=== PATIENT | male | born 1950 | race Caucasian/White ===

== ENCOUNTER 2017-05-14 18:15 | Inpatient (IN) | payer OTHER ==
[~2017-05-14] VITALS: Ht 182.9 cm; Wt 145.3 kg
[~2017-05-14 18:15] MED LIST: ADULT LOW DOSE81 M1 PO; AMLODIPINE BESYL5 MG PO; Aspirin E.C. PO; CELEBREX200 MG PO; CYANOCOBALAM1000 MCG PO; FLOMAX0.4 MG PO; FLORASTOR250 MG PO; GLUCOPHAGE1000 MG PO; GLUCOTROL XL10 MG PO; GLUCOTROL10 MG PO; GRALISE600 MG PO; Glucophage PO; Glucotrol PO; HYDROCODON-ACE1 EAC7 PO; K-DUR10 MEQ PO; KETOCONAZOLE60 GM TP; LASIX20 MG PO; LEVEMIR FL100 UNIT/1 SC; LEVEMIR FL100 UNITS/ SC; LIPITOR20 MG PO; METANX CAPSULE1 EACH PO; METANX1 TABLET PO; METRONIDAZOLE500 MG PO; MULTIVITAMIN1 EAC2 PO; Mavik PO; NEURONTIN300 MG PO; PERCOCET 5/31 TABLET PO; Percocet 5/325,Endoc PO; ROCEPHIN 2 GM VI2 GM IM; TRAMADOL HCL50 MG PO; TYLENOL EXTRA500 MG PO; Tylenol Regular Stre PO; VANCOMYCIN100 MG/M2 IV; VITAMIN B12-FO1 EACH PO; Vitamin B-12 PO; ZESTRIL10 MG PO; ZYVOX600 MG PO; [UNRECOGNIZED DRUG - OTHER] PO
[2017-05-14 19:34] LABS: HEMATOCRIT 42.4 % (38.0-50.0); MCHC 34.2 G/DL (30.0-36.0); MCV 87.8 FL (86-99); MEAN PLAT.VOLUME 10.1 uM^3 (9.0-12.4); PLATELET COUNT 218 K/uL (156-360); RBC DIS.WIDTH-CV 13.3 % (11.8-14.6); RED BLOOD COUNT 4.83 M/uL (4.00-5.50); WHITE BLOOD COUNT 10.7 K/uL (4.1-10.2)
[2017-05-14 19:47] LABS: CHLORIDE 106 mEq/L (99-109); POTASSIUM 4.1 mEq/L (3.7-5.4)
[2017-05-14 19:48] LABS: SODIUM 140 mEq/L (136-147)
[2017-05-14 19:49] LABS: GLUCOSE 214 mg/dL (70-99)
[2017-05-14 19:51] LABS: ANION GAP 12 MEQ/L (2-14)
[2017-05-14 19:53] LABS: GFR ESTIMATE (CALCULATED) > 59 mL/min/
[2017-05-14 19:54] LABS: UREA NITROGEN (BUN) 15 mg/dL (9-23)
[2017-05-14] MEDS ORDERED: ANODYNE LPT 2.1 EACH TP (21:36)
[2017-05-14] MEDS ORDERED: METFORMIN HCL1000 MG PO (21:37)
[2017-05-14] MEDS ORDERED: DICLOFENAC SOD100 GM TP (21:37)
[2017-05-15 04:49] VITALS: BP 131/63
[2017-05-15 06:08] LABS: HEMATOCRIT 39.4 % (38.0-50.0); MCH 29.5 PG (29.0-34.0); MCHC 33.5 G/DL (30.0-36.0); MCV 87.9 FL (86-99); MEAN PLAT.VOLUME 10.1 uM^3 (9.0-12.4); PLATELET COUNT 192 K/uL (156-360); RBC DIS.WIDTH-CV 13.2 % (11.8-14.6); RBC DIS.WIDTH-SD 43.2 % (39-53); RED BLOOD COUNT 4.48 M/uL (4.00-5.50)
[2017-05-15 06:36] LABS: ANION GAP 7 MEQ/L (2-14); CHLORIDE 109 MEQ/L (99-109); GFR ESTIMATE (CALCULATED) > 59 mL/min/; GLUCOSE 233 mg/dL (70-99); POTASSIUM 4.5 MEQ/L (3.7-5.4); SAMPLE HEMOLYSIS CHECK 0; SAMPLE ICTERIC CHECK 0; SAMPLE LIPEMIA CHECK 0; SODIUM 141 MEQ/L (136-147); UREA NITROGEN (BUN) 14 mg/dL (9-23)
[2017-05-15 06:44] LABS: POINT-OF-CARE METER ID UU13113774
[2017-05-15 06:52] LABS: Estimated Average Glucose 203 mg/dL (70-123); HEMOGLOBIN A1c (GLYCOHEMOGLOB) 8.7 % HGB (Below 5.7)
[2017-05-15 07:20] VITALS: BP 122/71
[2017-05-15 11:26] LABS: POINT-OF-CARE METER ID UU13113774
[2017-05-15 16:32] LABS: POINT-OF-CARE METER ID UU13113725
[2017-05-15 16:53] VITALS: BP 130/63
[2017-05-15 21:22] LABS: POINT-OF-CARE METER ID UU13113725
[2017-05-15 23:40] VITALS: BP 116/56
[2017-05-16 07:26] LABS: POINT-OF-CARE METER ID UU13113774
[2017-05-16 07:27] VITALS: BP 123/58
[2017-05-16 10:37] LABS: POINT-OF-CARE METER ID UU13113725
[2017-05-16 15:50] LABS: POINT-OF-CARE METER ID UU13113774
[2017-05-16 16:33] VITALS: BP 128/63
[2017-05-16 18:34] LABS: ADD MIUA? YES; BILIRUBIN NEGATIVE; BLOOD LARGE; COLOR YELLOW ((YELLOW)); GLUCOSE (STRIP) >=500; KETONES NEGATIVE; LEUKOCYTES MODERATE; NITRITE NEGATIVE; PROTEIN (STRIP) 100; SPECIFIC GRAVITY 1.026 (1.000-1.030)
[2017-05-16 19:14] LABS: BACTERIA 2+ /HPF; EPITHELIAL CELLS NONE SEEN /HPF; MUCUS TRACE /LPF; RED BLOOD CELLS TNTC /HPF (0-5)
[2017-05-16 19:56] LABS: POINT-OF-CARE METER ID UU13113774
[2017-05-16 22:07] LABS: CASTS NONE SEEN /LPF; CRYSTALS NONE SEEN
[2017-05-17 06:42] LABS: POINT-OF-CARE METER ID UU13113725
[2017-05-17 07:11] LABS: EOSINOPHIL (%) 1.7 % (0-5); EOSINOPHIL COUNT 0.1 K/uL (0-0.3); HEMATOCRIT 37.7 % (38.0-50.0); IMMATURE GRANULOCYTE (%) 0.7 % (0.0-0.7); LYMPHOCYTE COUNT 1.2 K/uL (1.0-2.8); MCH 29.7 PG (29.0-34.0); MCHC 33.7 G/DL (30.0-36.0); MCV 88.3 FL (86-99); MEAN PLAT.VOLUME 10.3 uM^3 (9.0-12.4); MONOCYTE (%) 7.3 % (3-12); MONOCYTE COUNT 0.4 K/uL (0-0.8); NEUTROPHIL (%) 69.4 % (45-76); PLATELET COUNT 176 K/uL (156-360); RBC DIS.WIDTH-CV 13.2 % (11.8-14.6); RBC DIS.WIDTH-SD 42.9 % (39-53); RED BLOOD COUNT 4.27 M/uL (4.00-5.50); WHITE BLOOD COUNT 5.8 K/uL (4.1-10.2)
[2017-05-17 07:34] LABS: ANION GAP 8 MEQ/L (2-14); CHLORIDE 105 MEQ/L (99-109); GFR ESTIMATE (CALCULATED) > 59 mL/min/; GLUCOSE 234 mg/dL (70-99); POTASSIUM 4.5 MEQ/L (3.7-5.4); SAMPLE HEMOLYSIS CHECK 0; SAMPLE ICTERIC CHECK 0; SAMPLE LIPEMIA CHECK 0; SODIUM 138 MEQ/L (136-147); UREA NITROGEN (BUN) 12 mg/dL (9-23)
[2017-05-17 08:00] VITALS: BP 123/61
[2017-05-17 08:46] VITALS: BP 123/61
[2017-05-17 11:27] LABS: POINT-OF-CARE METER ID UU13113774
[2017-05-17 15:22] VITALS: BP 126/64
[2017-05-17 16:19] LABS: POINT-OF-CARE METER ID UU13113725
[2017-05-17 21:04] LABS: POINT-OF-CARE METER ID UU13113725
[2017-05-18 00:16] VITALS: BP 130/62
[2017-05-18 05:56] LABS: POINT-OF-CARE METER ID UU13113725
[2017-05-18 07:19] VITALS: BP 133/63
[2017-05-18 11:42] LABS: POINT-OF-CARE METER ID UU13113725
[2017-05-18 15:58] VITALS: BP 123/65
[2017-05-18 16:21] LABS: POINT-OF-CARE METER ID UU13113725
[2017-05-18 20:53] LABS: POINT-OF-CARE METER ID UU13113725
[2017-05-19 00:24] VITALS: BP 134/64
[2017-05-19 06:07] LABS: POINT-OF-CARE METER ID UU13113725
[2017-05-19 07:46] VITALS: BP 138/62
[2017-05-19] MEDS ORDERED: LEVOFLOXACIN250 MG PO (09:41)
[2017-05-19 11:49] LABS: POINT-OF-CARE METER ID UU13113725
== END 2017-05-19 12:24 | DRG 74 ==
LOC: EME 18:15 → EDOF 22:07 → 5EAST 22:07 → ENRESERV 22:07 → EDOF 05-15 00:23 → 5EAST 05-15 00:23
PROVIDERS: Emergency Medicine; Hospitalist; Internal Medicine
DX: E11.42 Type 2 diabetes mellitus with diabetic polyneuropathy (principal); R27.0 Ataxia, unspecified; E11.65 Type 2 diabetes mellitus with hyperglycemia; N39.0 Urinary tract infection, site not specified; R53.1 Weakness; E66.9 Obesity, unspecified; Z68.41 Body mass index [BMI] 40.0-44.9, adult; I10 Essential (primary) hypertension; I89.0 Lymphedema, not elsewhere classified; K76.89 Other specified diseases of liver; M79.7 Fibromyalgia; R60.0 Localized edema; R31.9 Hematuria, unspecified; Z79.4 Long term (current) use of insulin; E78.5 Hyperlipidemia, unspecified; Z80.0 Family history of malignant neoplasm of digestive organs; Z82.49 Family history of ischemic heart disease and other diseases of the circulatory system
CPT/HCPCS: 71020; 73610; 73630; 76770; 80048; 81003; 82306; 82607; 82746; 82948; 83036; 84443; 85025; 85027; 87086; 90686; 93005; 97530 GO; 97530 GP; 99281; 99285; J1644; J1815; J1956; J7030

== ENCOUNTER 2017-09-06 10:05 | Observation (INO) | payer OTHER ==
[~2017-09-06] VITALS: Ht 185.4 cm; Wt 150.2 kg
[~2017-09-06 10:05] MED LIST changes: +ANODYNE LPT 2.1 EACH TP; +DICLOFENAC SOD100 GM TP; +LEVOFLOXACIN250 MG PO; +METFORMIN HCL1000 MG PO
[2017-09-06 10:51] LABS: HEMATOCRIT 42.8 % (38.0-50.0); MCH 30.7 PG (29.0-34.0); MCV 87.7 FL (86-99); PLATELET COUNT 175 K/uL (156-360); RBC DIS.WIDTH-CV 13.2 % (11.8-14.6); RBC DIS.WIDTH-SD 42.4 % (39-53); RED BLOOD COUNT 4.88 M/uL (4.00-5.50)
[2017-09-06 10:59] LABS: ALBUMIN 3.8 g/dL (3.2-4.8)
[2017-09-06 11:00] LABS: CHLORIDE 104 mEq/L (99-109); POTASSIUM 4.3 mEq/L (3.7-5.4); SODIUM 138 mEq/L (136-147)
[2017-09-06 11:02] LABS: GLUCOSE 243 mg/dL (70-99); TOTAL PROTEIN 6.7 g/dL (6.4-8.3)
[2017-09-06 11:04] LABS: TOTAL BILIRUBIN 0.8 mg/dL (0.0-1.0)
[2017-09-06 11:05] LABS: ALKALINE PHOSPHATASE 113 IU/L (3-129)
[2017-09-06 11:06] LABS: CREATININE 0.9 mg/dL (0.6-1.3); GFR ESTIMATE (CALCULATED) > 59 mL/min/ (58.99-99999)
[2017-09-06 11:07] LABS: AST (GOT) 16 IU/L (2-34); UREA NITROGEN (BUN) 13 mg/dL (9-23)
[2017-09-06 11:09] LABS: ALT (GPT) 19 IU/L (3-49); CREATINE KINASE 26 IU/L (1-294)
[2017-09-06 17:55] LABS: APPEARANCE SL.HAZY ((CLEAR)); BILIRUBIN NEGATIVE; BLOOD NEGATIVE; COLOR YELLOW ((YELLOW)); GLUCOSE (STRIP) >=500; KETONES 5; LEUKOCYTES NEGATIVE; NITRITE NEGATIVE; PROTEIN (STRIP) 100; SPECIFIC GRAVITY 1.022 (1.000-1.030); UROBILINOGEN 0.2 MG/DL (0.2-1.0)
[2017-09-06 18:08] LABS: BACTERIA RARE /HPF; EPITHELIAL CELLS NONE SEEN /HPF; HYALINE CASTS 0-5 /LPF; MUCUS TRACE /LPF; RED BLOOD CELLS 0-5 /HPF (0-5); UCUL ADDED? NO; WHITE BLOOD CELLS 0-5 /HPF (0-5)
[2017-09-06 23:04] VITALS: BP 161/72
[2017-09-07 00:25] VITALS: BP 136/62
[2017-09-07 07:19] VITALS: BP 129/63
[2017-09-07 12:23] VITALS: BP 127/60
[2017-09-07 17:05] VITALS: BP 123/67
[2017-09-07 22:18] VITALS: BP 123/58
[2017-09-08 00:19] VITALS: BP 113/57
[2017-09-08 07:12] VITALS: BP 127/59
[2017-09-08 10:44] VITALS: BP 137/62
== END 2017-09-08 10:54 ==
LOC: EME 10:05 → EDOF 21:10 → 5WEST 21:10 → ENRESERV 21:12 → 5WEST 22:48
PROVIDERS: Emergency Medicine; Family Medicine
PROC: 3E0U33Z Introduction of Anti-inflammatory into Joints, Percutaneous Approach (ICD-10-PCS; principal; 2017-09-07)
DX: M25.562 Pain in left knee (principal); R26.89 Other abnormalities of gait and mobility; M79.662 Pain in left lower leg; M79.661 Pain in right lower leg; M79.89 Other specified soft tissue disorders; I10 Essential (primary) hypertension; E66.01 Morbid (severe) obesity due to excess calories; Z68.41 Body mass index [BMI] 40.0-44.9, adult; M17.12 Unilateral primary osteoarthritis, left knee; S82.832A Other fracture of upper and lower end of left fibula, initial encounter for closed fracture; E11.40 Type 2 diabetes mellitus with diabetic neuropathy, unspecified; E78.5 Hyperlipidemia, unspecified; E11.65 Type 2 diabetes mellitus with hyperglycemia; Z88.0 Allergy status to penicillin; Z88.1 Allergy status to other antibiotic agents; W19.XXXA Unspecified fall, initial encounter; Z79.82 Long term (current) use of aspirin; Z79.4 Long term (current) use of insulin
CPT/HCPCS: 73564; 73721; 80053; 81003; 82550; 82948; 83605; 85027; 93970; 97530 GO; 97530 GP; 99281; 99285; G0378; G8978 GP CM; G8979 GP CL; G8987 GO CM; G8988 GO CJ; J1650; J1815; J7030

== ENCOUNTER 2017-09-07 16:35 | Inpatient (IN) | payer OTHER ==
[~2017-09-07] VITALS: Ht 185.4 cm; Wt 154.7 kg
[2017-09-08 11:20] VITALS: BP 159/86
[2017-09-08 14:23] LABS: HEMATOCRIT 41.6 % (38.0-50.0); HEMOGLOBIN 14.4 G/DL (12.5-16.6); MCH 30.4 PG (29.0-34.0); MCHC 34.6 G/DL (30.0-36.0); MCV 87.8 FL (86-99); PLATELET COUNT 182 K/uL (156-360); RBC DIS.WIDTH-CV 13.1 % (11.8-14.6); RED BLOOD COUNT 4.74 M/uL (4.00-5.50); WHITE BLOOD COUNT 8.4 K/uL (4.1-10.2)
[2017-09-08 14:47] LABS: ALBUMIN 3.6 G/DL (3.2-4.8); ALKALINE PHOSPHATASE 75 IU/L (3-129); ALT (GPT) 15 IU/L (3-49); AST (GOT) 15 IU/L (2-34); CHLORIDE 101 MEQ/L (99-109); CREATININE 0.9 MG/DL (0.6-1.3); GFR ESTIMATE (CALCULATED) > 59 mL/min/ (58.99-99999); GLUCOSE 248 mg/dL (70-99); SODIUM 133 MEQ/L (136-147); TOTAL BILIRUBIN 0.7 MG/DL (0.0-1.0); TOTAL PROTEIN 6.5 G/DL (6.4-8.3)
[2017-09-08 14:49] LABS: UREA NITROGEN (BUN) 23 mg/dL (9-23)
[2017-09-08 15:28] VITALS: BP 121/74
[2017-09-09 00:06] VITALS: BP 150/70
[2017-09-09 05:48] VITALS: BP 126/66
[2017-09-09 15:20] VITALS: BP 110/52
[2017-09-10 05:53] VITALS: BP 145/65
[2017-09-10 15:36] VITALS: BP 115/53
[2017-09-11 05:49] VITALS: BP 125/56
[2017-09-11 15:37] VITALS: BP 105/53
[2017-09-12 05:22] VITALS: BP 133/63
[2017-09-12 07:56] LABS: HEMATOCRIT 41.9 % (38.0-50.0); HEMOGLOBIN 14.3 G/DL (12.5-16.6); MCH 30.4 PG (29.0-34.0); MCHC 34.1 G/DL (30.0-36.0); PLATELET COUNT 184 K/uL (156-360); RBC DIS.WIDTH-CV 13.2 % (11.8-14.6); RBC DIS.WIDTH-SD 42.5 % (39-53); RED BLOOD COUNT 4.71 M/uL (4.00-5.50); WHITE BLOOD COUNT 6.7 K/uL (4.1-10.2)
[2017-09-12 08:23] LABS: ALBUMIN 3.5 G/DL (3.2-4.8); ALKALINE PHOSPHATASE 76 IU/L (3-129); ALT (GPT) 14 IU/L (3-49); AST (GOT) 12 IU/L (2-34); CHLORIDE 105 MEQ/L (99-109); CREATININE 0.9 MG/DL (0.6-1.3); GFR ESTIMATE (CALCULATED) > 59 mL/min/ (58.99-99999); GLUCOSE 113 mg/dL (70-99); POTASSIUM 4.3 MEQ/L (3.7-5.4); SODIUM 139 MEQ/L (136-147); TOTAL PROTEIN 5.7 G/DL (6.4-8.3); UREA NITROGEN (BUN) 26 mg/dL (9-23)
[2017-09-12 08:24] LABS: TOTAL BILIRUBIN 0.5 MG/DL (0.0-1.0)
[2017-09-12 15:12] VITALS: BP 139/66
[2017-09-12 20:34] VITALS: BP 126/60
[2017-09-12 20:54] VITALS: BP 124/60
[2017-09-13 06:00] VITALS: BP 118/53
[2017-09-13 15:12] VITALS: BP 157/53
[2017-09-14 04:49] VITALS: BP 126/58
[2017-09-14 07:20] VITALS: BP 132/62
[2017-09-14 15:27] VITALS: BP 112/56
[2017-09-14 20:39] VITALS: BP 119/57
[2017-09-15 04:36] VITALS: BP 116/56
[2017-09-15 07:03] VITALS: BP 124/60
[2017-09-15 15:26] VITALS: BP 133/60
[2017-09-16 05:34] VITALS: BP 116/56
[2017-09-16 15:17] VITALS: BP 118/56
[2017-09-17 05:49] VITALS: BP 133/60
[2017-09-17 15:08] VITALS: BP 102/54
[2017-09-17 21:15] VITALS: BP 116/56
[2017-09-18 05:05] VITALS: BP 117/56
[2017-09-18 15:51] VITALS: BP 104/54
[2017-09-19 06:23] VITALS: BP 112/58
[2017-09-19 15:37] VITALS: BP 102/54
[2017-09-20 05:48] VITALS: BP 120/56
[2017-09-20 15:56] VITALS: BP 131/58
[2017-09-21 06:54] VITALS: BP 117/59
[2017-09-21 07:05] VITALS: BP 124/60
[2017-09-21 08:46] LABS: HEMATOCRIT 41.2 % (38.0-50.0); MCH 30.6 PG (29.0-34.0); PLATELET COUNT 194 K/uL (156-360); RBC DIS.WIDTH-CV 13.2 % (11.8-14.6); RBC DIS.WIDTH-SD 43.6 % (39-53); RED BLOOD COUNT 4.58 M/uL (4.00-5.50); WHITE BLOOD COUNT 8.6 K/uL (4.1-10.2)
[2017-09-21 09:14] LABS: ALBUMIN 3.6 G/DL (3.2-4.8); ALKALINE PHOSPHATASE 73 IU/L (3-129); ALT (GPT) 16 IU/L (3-49); AST (GOT) 14 IU/L (2-34); CHLORIDE 106 MEQ/L (99-109); CREATININE 1.1 MG/DL (0.6-1.3); GFR ESTIMATE (CALCULATED) > 59 mL/min/ (58.99-99999); GLUCOSE 95 mg/dL (70-99); SODIUM 138 MEQ/L (136-147); TOTAL BILIRUBIN 0.5 MG/DL (0.0-1.0); TOTAL PROTEIN 5.8 G/DL (6.4-8.3); UREA NITROGEN (BUN) 29 mg/dL (9-23)
[2017-09-21 15:08] VITALS: BP 129/61
[2017-09-21] MEDS ORDERED: LEVEMIR FL100 UNIT/1 SC (21:35)
[2017-09-22 06:13] VITALS: BP 132/62
[2017-09-22 07:10] VITALS: BP 114/57
== END 2017-09-22 12:35 | DRG 560 ==
LOC: 3WEST 16:35 → ENPENDDIS 09-22 → 3WEST 09-22 12:35
PROVIDERS: Physical Medicine & Rehabilitation; Physical Medicine & Rehabilitation Pain Medicine
PROC: F07M0ZZ Range of Motion and Joint Mobility Treatment of Musculoskeletal System - Whole Body (ICD-10-PCS; principal; 2017-09-08)
DX: M84.464D Pathological fracture, left fibula, subsequent encounter for fracture with routine healing (principal); R26.2 Difficulty in walking, not elsewhere classified; M25.562 Pain in left knee; R53.1 Weakness; M23.222 Derangement of posterior horn of medial meniscus due to old tear or injury, left knee; E11.42 Type 2 diabetes mellitus with diabetic polyneuropathy; E11.65 Type 2 diabetes mellitus with hyperglycemia; R60.0 Localized edema; R45.1 Restlessness and agitation; I10 Essential (primary) hypertension; N40.0 Benign prostatic hyperplasia without lower urinary tract symptoms; E66.01 Morbid (severe) obesity due to excess calories; Z68.41 Body mass index [BMI] 40.0-44.9, adult; E78.5 Hyperlipidemia, unspecified; Z91.81 History of falling; Z79.4 Long term (current) use of insulin; Z80.51 Family history of malignant neoplasm of kidney; Z83.3 Family history of diabetes mellitus
CPT/HCPCS: 80053; 82948; 85027; 97110 GO; 97530 GP; J1650; J1815

== ENCOUNTER 2017-10-01 16:28 | Emergency (ER) | payer OTHER ==
[~2017-10-01] VITALS: Ht 185.4 cm; Wt 141.2 kg
[2017-10-01 21:19] VITALS: BP 138/62
== END 2017-10-01 21:19 | disposition home or self-care (01) ==
LOC: EME 16:28
DX: S83.242A Other tear of medial meniscus, current injury, left knee, initial encounter (principal); W18.30XA Fall on same level, unspecified, initial encounter; M17.12 Unilateral primary osteoarthritis, left knee; E11.9 Type 2 diabetes mellitus without complications; I10 Essential (primary) hypertension; E78.5 Hyperlipidemia, unspecified; M79.7 Fibromyalgia; F32.9 Major depressive disorder, single episode, unspecified; Z79.82 Long term (current) use of aspirin; Z79.84 Long term (current) use of oral hypoglycemic drugs; Z85.9 Personal history of malignant neoplasm, unspecified; Z88.1 Allergy status to other antibiotic agents; Z88.0 Allergy status to penicillin; Z88.8 Allergy status to other drugs, medicaments and biological substances
CPT/HCPCS: 73564; 99281; 99284

== ENCOUNTER 2018-02-20 16:03 | Inpatient (IN) | payer OTHER ==
[~2018-02-20] VITALS: Ht 172.7 cm; Wt 147.5 kg
[~2018-02-20 16:03] MED LIST changes: +GABAPENTIN300 MG PO
[2018-02-20 17:11] LABS: BASOPHIL (%) 0.3 % (0-1); EOSINOPHIL (%) 0.2 % (0-5); HEMATOCRIT 40.6 % (38.0-50.0); HEMOGLOBIN 14.3 G/DL (12.5-16.6); IMMATURE GRANULOCYTE (%) 0.6 % (0.0-0.7); LYMPHOCYTE (%) 4.8 % (15-42); LYMPHOCYTE COUNT 0.6 K/uL (1.0-2.8); MCH 30.1 PG (29.0-34.0); MCHC 35.2 G/DL (30.0-36.0); MCV 85.5 FL (86-99); MONOCYTE (%) 4.7 % (3-12); MONOCYTE COUNT 0.6 K/uL (0-0.8); NEUTROPHIL (%) 89.4 % (45-76); NEUTROPHIL COUNT 10.7 K/uL (1.8-6.4); PLATELET COUNT 158 K/uL (156-360); RBC DIS.WIDTH-CV 13.8 % (11.8-14.6); RBC DIS.WIDTH-SD 42.9 % (39-53); RED BLOOD COUNT 4.75 M/uL (4.00-5.50)
[2018-02-20 17:19] LABS: ALBUMIN 3.4 g/dL (3.2-4.8)
[2018-02-20 17:20] LABS: CHLORIDE 101 mEq/L (99-109); POTASSIUM 4.4 mEq/L (3.7-5.4); SODIUM 135 mEq/L (136-147)
[2018-02-20 17:22] LABS: GLUCOSE 262 mg/dL (70-99); TOTAL PROTEIN 6.5 g/dL (6.4-8.3)
[2018-02-20 17:25] LABS: ALKALINE PHOSPHATASE 103 IU/L (3-129)
[2018-02-20 17:26] LABS: CREATININE 1.2 mg/dL (0.6-1.3); GFR ESTIMATE (CALCULATED) > 59 mL/min/ (58.99-99999)
[2018-02-20 17:27] LABS: AST (GOT) 24 IU/L (2-34); UREA NITROGEN (BUN) 22 mg/dL (9-23)
[2018-02-20 17:28] LABS: ALT (GPT) 22 IU/L (3-49)
[2018-02-20 17:33] LABS: TROP-I INTERPRETATION NEGATIVE; TROPONIN-I < 0.01 ng/mL (0.0-0.30)
[2018-02-20] MEDS ORDERED: LISINOPRIL10 MG PO (18:41)
[2018-02-20] MEDS ORDERED: GLIPIZIDE10 MG PO (18:42)
[2018-02-20] MEDS ORDERED: LEVEMIR FL100 UNIT/1 SC (18:45)
[2018-02-20] MEDS ORDERED: GABAPENTIN600 MG PO (18:48)
[2018-02-20 19:23] LABS: APPEARANCE CLEAR ((CLEAR)); BILIRUBIN NEGATIVE; BLOOD NEGATIVE; COLOR YELLOW ((YELLOW)); GLUCOSE (STRIP) >=500; KETONES 5; LEUKOCYTES NEGATIVE; NITRITE NEGATIVE; PROTEIN (STRIP) 30; SPECIFIC GRAVITY 1.023 (1.000-1.030); UCUL ADDED? NO; UROBILINOGEN 0.2 MG/DL (0.2-1.0)
[2018-02-20 22:04] VITALS: BP 177/79
[2018-02-21 04:12] VITALS: BP 139/68
[2018-02-21 05:30] LABS: BASOPHIL (%) 0.2 % (0-1); EOSINOPHIL COUNT 0.1 K/uL (0-0.3); HEMATOCRIT 37.3 % (38.0-50.0); HEMOGLOBIN 12.9 G/DL (12.5-16.6); IMMATURE GRANULOCYTE (%) 0.3 % (0.0-0.7); LYMPHOCYTE (%) 13.7 % (15-42); LYMPHOCYTE COUNT 1.3 K/uL (1.0-2.8); MCH 29.7 PG (29.0-34.0); MCHC 34.6 G/DL (30.0-36.0); MCV 85.9 FL (86-99); MONOCYTE (%) 6.7 % (3-12); MONOCYTE COUNT 0.6 K/uL (0-0.8); NEUTROPHIL (%) 78.1 % (45-76); NEUTROPHIL COUNT 7.2 K/uL (1.8-6.4); PLATELET COUNT 158 K/uL (156-360); RBC DIS.WIDTH-CV 13.6 % (11.8-14.6); RBC DIS.WIDTH-SD 42.9 % (39-53); RED BLOOD COUNT 4.34 M/uL (4.00-5.50); WHITE BLOOD COUNT 9.3 K/uL (4.1-10.2)
[2018-02-21 05:59] LABS: CHLORIDE 106 MEQ/L (99-109); CREATININE 0.8 MG/DL (0.6-1.3); GFR ESTIMATE (CALCULATED) > 59 mL/min/ (58.99-99999); GLUCOSE 151 mg/dL (70-99); POTASSIUM 3.6 MEQ/L (3.7-5.4); SODIUM 139 MEQ/L (136-147); UREA NITROGEN (BUN) 14 mg/dL (9-23)
[2018-02-21 07:18] VITALS: BP 148/89
[2018-02-21 11:28] VITALS: BP 135/65
[2018-02-21 15:15] VITALS: BP 137/65
[2018-02-21 19:54] VITALS: BP 119/57
[2018-02-22 00:08] VITALS: BP 150/71
[2018-02-22 07:42] VITALS: BP 149/67
[2018-02-22 12:09] VITALS: BP 159/67
[2018-02-22 16:12] VITALS: BP 165/70
[2018-02-22 21:04] VITALS: BP 123/60
[2018-02-22 23:58] VITALS: BP 131/60
[2018-02-23 03:40] VITALS: BP 131/62
[2018-02-23 06:31] LABS: CHLORIDE 108 MEQ/L (99-109); CREATININE 0.8 MG/DL (0.6-1.3); GFR ESTIMATE (CALCULATED) > 59 mL/min/ (58.99-99999); GLUCOSE 226 mg/dL (70-99); SODIUM 141 MEQ/L (136-147); UREA NITROGEN (BUN) 13 mg/dL (9-23)
[2018-02-23 06:37] LABS: POTASSIUM 4.6 MEQ/L (3.7-5.4); VANCOMYCIN, TROUGH 9.6 MCG/ML (10-20)
[2018-02-23 07:30] VITALS: BP 133/65
[2018-02-23] MEDS ORDERED: PANTOPRAZOLE SO40 MG PO (09:57)
[2018-02-23] MEDS ORDERED: BACTRIM,SEPT1 TABLET PO (09:57)
[2018-02-23] MEDS ORDERED: FLAGYL500 MG PO (09:57)
[2018-02-23 15:28] VITALS: BP 132/82
== END 2018-02-23 16:23 | DRG 603 ==
LOC: EME 16:03 → EDOF 19:15 → 5SOUTH 19:15 → ENRESERV 19:24 → 5SOUTH 21:54
PROVIDERS: Emergency Medicine; Hospitalist
DX: L03.115 Cellulitis of right lower limb (principal); R11.2 Nausea with vomiting, unspecified; R19.7 Diarrhea, unspecified; E86.0 Dehydration; R53.1 Weakness; E11.42 Type 2 diabetes mellitus with diabetic polyneuropathy; M79.7 Fibromyalgia; I10 Essential (primary) hypertension; E78.5 Hyperlipidemia, unspecified; F32.9 Major depressive disorder, single episode, unspecified; K62.89 Other specified diseases of anus and rectum; K57.30 Diverticulosis of large intestine without perforation or abscess without bleeding; K80.20 Calculus of gallbladder without cholecystitis without obstruction; N40.0 Benign prostatic hyperplasia without lower urinary tract symptoms; E66.01 Morbid (severe) obesity due to excess calories; Z79.4 Long term (current) use of insulin; Z90.49 Acquired absence of other specified parts of digestive tract; Z79.82 Long term (current) use of aspirin; Z88.0 Allergy status to penicillin; Z88.1 Allergy status to other antibiotic agents; Z68.42 Body mass index [BMI] 45.0-49.9, adult
CPT/HCPCS: 71045; 71275; 74177; 80048; 80053; 80202; 81003; 82948; 83605; 84484; 85025; 87040; 87493; 87506; 93005; 93971; 97530 GO; 97530 GP; 99281; 99285; J1650; J1815; J1956; J3370; J7120; S0030

== ENCOUNTER 2018-02-23 14:40 | Inpatient (IN) | payer OTHER ==
[~2018-02-23] VITALS: Ht 182.9 cm; Wt 156.6 kg
[~2018-02-23 14:40] MED LIST changes: +BACTRIM,SEPT1 TABLET PO; +FLAGYL500 MG PO; +GABAPENTIN600 MG PO; +GLIPIZIDE10 MG PO; +LISINOPRIL10 MG PO; +PANTOPRAZOLE SO40 MG PO
[2018-02-23 17:03] VITALS: BP 132/63
[2018-02-24 00:23] VITALS: BP 121/56
[2018-02-24 04:53] VITALS: BP 120/60
[2018-02-24 06:53] LABS: HEMATOCRIT 38.2 % (38.0-50.0); MCH 29.3 PG (29.0-34.0); MCV 86.2 FL (86-99); PLATELET COUNT 188 K/uL (156-360); RBC DIS.WIDTH-CV 13.8 % (11.8-14.6); RBC DIS.WIDTH-SD 43.5 % (39-53); RED BLOOD COUNT 4.43 M/uL (4.00-5.50); WHITE BLOOD COUNT 7.1 K/uL (4.1-10.2)
[2018-02-24 07:36] LABS: ALKALINE PHOSPHATASE 85 IU/L (3-129); ALT (GPT) 21 IU/L (3-49); AST (GOT) 31 IU/L (2-34); CHLORIDE 108 MEQ/L (99-109); CREATININE 0.9 MG/DL (0.6-1.3); GFR ESTIMATE (CALCULATED) > 59 mL/min/ (58.99-99999); GLUCOSE 136 mg/dL (70-99); POTASSIUM 4.2 MEQ/L (3.7-5.4); SODIUM 139 MEQ/L (136-147); TOTAL BILIRUBIN 0.5 MG/DL (0.0-1.0); TOTAL PROTEIN 5.5 G/DL (6.4-8.3); UREA NITROGEN (BUN) 11 mg/dL (9-23)
[2018-02-24 21:35] VITALS: BP 115/57
[2018-02-25 04:55] VITALS: BP 119/56
[2018-02-25 08:13] VITALS: BP 129/60
[2018-02-25 15:26] VITALS: BP 117/55
[2018-02-26 05:04] VITALS: BP 137/64
[2018-02-26 05:36] LABS: BASOPHIL (%) 0.5 % (0-1); EOSINOPHIL (%) 4.7 % (0-5); EOSINOPHIL COUNT 0.3 K/uL (0-0.3); HEMATOCRIT 38.2 % (38.0-50.0); HEMOGLOBIN 12.9 G/DL (12.5-16.6); IMMATURE GRANULOCYTE (%) 1.8 % (0.0-0.7); LYMPHOCYTE (%) 23.9 % (15-42); LYMPHOCYTE COUNT 1.5 K/uL (1.0-2.8); MCH 29.7 PG (29.0-34.0); MCHC 33.8 G/DL (30.0-36.0); MONOCYTE (%) 8.4 % (3-12); MONOCYTE COUNT 0.5 K/uL (0-0.8); NEUTROPHIL (%) 60.7 % (45-76); NEUTROPHIL COUNT 3.8 K/uL (1.8-6.4); PLATELET COUNT 215 K/uL (156-360); RBC DIS.WIDTH-SD 44.8 % (39-53); RED BLOOD COUNT 4.34 M/uL (4.00-5.50); WHITE BLOOD COUNT 6.2 K/uL (4.1-10.2)
[2018-02-26 06:03] LABS: CHLORIDE 106 MEQ/L (99-109); CREATININE 0.9 MG/DL (0.6-1.3); GFR ESTIMATE (CALCULATED) > 59 mL/min/ (58.99-99999); GLUCOSE 134 mg/dL (70-99); POTASSIUM 4.3 MEQ/L (3.7-5.4); SODIUM 138 MEQ/L (136-147); UREA NITROGEN (BUN) 13 mg/dL (9-23)
[2018-02-26 08:26] LABS: THYROTROPIN (TSH) 5.8 MIU/L (0.4-5.5)
[2018-02-26 15:23] VITALS: BP 123/58
[2018-02-27 06:28] VITALS: BP 126/58
[2018-02-27 15:42] VITALS: BP 100/54
[2018-02-28 05:58] VITALS: BP 116/54
[2018-02-28 15:13] VITALS: BP 101/61
[2018-03-01 05:14] VITALS: BP 116/58
[2018-03-01 05:50] LABS: BASOPHIL (%) 0.5 % (0-1); EOSINOPHIL (%) 2.4 % (0-5); EOSINOPHIL COUNT 0.2 K/uL (0-0.3); HEMATOCRIT 36.4 % (38.0-50.0); HEMOGLOBIN 12.4 G/DL (12.5-16.6); IMMATURE GRANULOCYTE (%) 1.4 % (0.0-0.7); LYMPHOCYTE (%) 24.4 % (15-42); LYMPHOCYTE COUNT 1.6 K/uL (1.0-2.8); MCHC 34.1 G/DL (30.0-36.0); MCV 87.9 FL (86-99); MONOCYTE (%) 9.1 % (3-12); MONOCYTE COUNT 0.6 K/uL (0-0.8); NEUTROPHIL (%) 62.2 % (45-76); PLATELET COUNT 220 K/uL (156-360); RBC DIS.WIDTH-CV 14.1 % (11.8-14.6); RED BLOOD COUNT 4.14 M/uL (4.00-5.50); WHITE BLOOD COUNT 6.4 K/uL (4.1-10.2)
[2018-03-01 06:13] LABS: CHLORIDE 106 MEQ/L (99-109); CREATININE 1.1 MG/DL (0.6-1.3); GFR ESTIMATE (CALCULATED) > 59 mL/min/ (58.99-99999); GLUCOSE 164 mg/dL (70-99); SODIUM 136 MEQ/L (136-147); UREA NITROGEN (BUN) 19 mg/dL (9-23)
[2018-03-01 15:36] VITALS: BP 101/52
[2018-03-02 06:58] VITALS: BP 115/68
[2018-03-03 05:24] VITALS: BP 110/56
[2018-03-03 15:04] VITALS: BP 116/58
[2018-03-04 04:50] VITALS: BP 121/57
[2018-03-04 15:08] VITALS: BP 109/53
[2018-03-05 05:51] VITALS: BP 118/58
[2018-03-05 06:43] LABS: BASOPHIL (%) 0.4 % (0-1); EOSINOPHIL (%) 2.4 % (0-5); EOSINOPHIL COUNT 0.2 K/uL (0-0.3); HEMOGLOBIN 11.4 G/DL (12.5-16.6); IMMATURE GRANULOCYTE (%) 0.9 % (0.0-0.7); LYMPHOCYTE (%) 26.9 % (15-42); LYMPHOCYTE COUNT 1.8 K/uL (1.0-2.8); MCHC 33.5 G/DL (30.0-36.0); MCV 89.5 FL (86-99); MONOCYTE (%) 8.7 % (3-12); MONOCYTE COUNT 0.6 K/uL (0-0.8); NEUTROPHIL (%) 60.7 % (45-76); NEUTROPHIL COUNT 4.1 K/uL (1.8-6.4); PLATELET COUNT 232 K/uL (156-360); RBC DIS.WIDTH-CV 14.3 % (11.8-14.6); RBC DIS.WIDTH-SD 46.3 % (39-53); WHITE BLOOD COUNT 6.8 K/uL (4.1-10.2)
[2018-03-05 06:46] LABS: CHLORIDE 110 MEQ/L (99-109); CREATININE 1.1 MG/DL (0.6-1.3); GFR ESTIMATE (CALCULATED) > 59 mL/min/ (58.99-99999); GLUCOSE 203 mg/dL (70-99); POTASSIUM 5.7 MEQ/L (3.7-5.4); SODIUM 138 MEQ/L (136-147); UREA NITROGEN (BUN) 18 mg/dL (9-23)
[2018-03-05 07:40] VITALS: BP 116/55
[2018-03-05 12:29] LABS: HEMOGLOBIN A1c (GLYCOHEMOGLOB) 8.4 % (Below 5.7)
[2018-03-05 15:34] VITALS: BP 113/53
[2018-03-06 06:09] VITALS: BP 119/58
[2018-03-06 15:08] VITALS: BP 96/55
[2018-03-07 05:08] VITALS: BP 123/59
[2018-03-07 07:32] VITALS: BP 113/55
[2018-03-07 15:34] VITALS: BP 92/47
[2018-03-07 15:46] VITALS: BP 92/48
[2018-03-07 21:51] VITALS: BP 118/55
[2018-03-08 06:32] VITALS: BP 110/54
[2018-03-08 06:42] LABS: CHLORIDE 108 MEQ/L (99-109); CREATININE 1.1 MG/DL (0.6-1.3); GFR ESTIMATE (CALCULATED) > 59 mL/min/ (58.99-99999); GLUCOSE 201 mg/dL (70-99); POTASSIUM 4.9 MEQ/L (3.7-5.4); SODIUM 137 MEQ/L (136-147); UREA NITROGEN (BUN) 22 mg/dL (9-23)
[2018-03-08] MEDS ORDERED: FUROSEMIDE40 MG PO (10:30)
[2018-03-08] MEDS ORDERED: GABAPENTIN600 MG PO (10:30)
[2018-03-08] MEDS ORDERED: METFORMIN HCL1000 MG PO (10:30)
[2018-03-08] MEDS ORDERED: LEVEMIR100 UNIT/2 SC (10:30)
[2018-03-08] MEDS ORDERED: Salonpas 4% Patch TD (10:30)
== END 2018-03-08 14:18 | DRG 91 ==
LOC: 3WEST 14:40 → ENPENDDIS 03-06 → EDPENDDISDT 03-08 → 3WEST 03-08 14:18
PROVIDERS: Family Medicine Sports Medicine; Physical Medicine & Rehabilitation Pain Medicine
PROC: F07M0ZZ Range of Motion and Joint Mobility Treatment of Musculoskeletal System - Whole Body (ICD-10-PCS; principal; 2018-02-23)
DX: G72.9 Myopathy, unspecified (principal); L03.115 Cellulitis of right lower limb; I10 Essential (primary) hypertension; E11.42 Type 2 diabetes mellitus with diabetic polyneuropathy; E66.01 Morbid (severe) obesity due to excess calories; Z68.42 Body mass index [BMI] 45.0-49.9, adult; N40.0 Benign prostatic hyperplasia without lower urinary tract symptoms; E78.5 Hyperlipidemia, unspecified; Z79.4 Long term (current) use of insulin; E83.51 Hypocalcemia; K59.00 Constipation, unspecified; M17.12 Unilateral primary osteoarthritis, left knee; S81.011A Laceration without foreign body, right knee, initial encounter; W18.30XA Fall on same level, unspecified, initial encounter; Z90.49 Acquired absence of other specified parts of digestive tract; Z91.81 History of falling; Z88.0 Allergy status to penicillin; I87.8 Other specified disorders of veins; I89.0 Lymphedema, not elsewhere classified; A04.72 Enterocolitis due to Clostridium difficile, not specified as recurrent; I26.99 Other pulmonary embolism without acute cor pulmonale; J18.9 Pneumonia, unspecified organism; K57.30 Diverticulosis of large intestine without perforation or abscess without bleeding
CPT/HCPCS: 80048; 80053; 82306; 82948; 83036; 84439; 84443; 85025; 85027; 97110 GO; 97530 GP; A6260; J1650; J1815